=== PATIENT | female | born 1965 | race Caucasian/White ===

== ENCOUNTER → 2020-07-31 | Outpatient (CLI) | payer OTHER ==
[~2020-07-31] VITALS: Ht 157.5 cm; Wt 86.2 kg
[~2020-07-31] MED LIST: ALDACTONE50 MG PO; CHRONULAC20 GM/30 M PO; ELIQUIS 2.5 MG2.5 MG PO; GLUCOPHAGE 500500 MG PO; LASIX40 MG PO; MIDODRINE HCL10 MG PO; NORVASC10 MG PO; ONDANSETRON HCL8 MG PO; PROTONIX40 MG PO; SODIUM BICARBO650 M1 PO; SYNTHROID112 MCG PO
[2020-07-31 10:45] LABS: RED BLOOD COUNT 3.37 M/UL (4.00-5.10); WHITE BLOOD COUNT 12.4 K/UL (4.5-11.0)
== END ==
LOC: OPSV 10:00
PROVIDERS: Internal Medicine Gastroenterology
PROC: 0W9G3ZX Drainage of Peritoneal Cavity, Percutaneous Approach, Diagnostic (ICD-10-PCS; principal; 2020-07-31)
DX: K74.60 Unspecified cirrhosis of liver (principal); R18.8 Other ascites; K75.81 Nonalcoholic steatohepatitis (NASH); Z88.2 Allergy status to sulfonamides
CPT/HCPCS: 36415; 80053; 85027; 96365; C1729; P9047

== ENCOUNTER 2020-08-22 17:33 | Emergency (ER) | payer OTHER ==
[2020-08-22 20:19] LABS: RED BLOOD COUNT 3.44 M/UL (4.00-5.10); WHITE BLOOD COUNT 11.1 K/UL (4.5-11.0)
[2020-08-22 23:40] LABS: BODY FLUID SOURCE ASCITES; MONONUCLEAR CELLS 63.9 (75-100); POLYMORPHONUCLEAR % 36.1 (0-25); RBC (AUTOMATED) 200 (0-100000); WBC (AUTOMATED) 30 (0-500)
[2020-08-22 23:50] LABS: TOTAL PROTEIN, BODY FLUID 1.8 gm/dL
== END 2020-08-22 23:43 | disposition home or self-care (01) ==
LOC: ER1 17:33
PROVIDERS: Family Medicine
DX: R18.8 Other ascites (principal); I10 Essential (primary) hypertension; E11.9 Type 2 diabetes mellitus without complications
CPT/HCPCS: 80053; 81001; 82150; 82945; 83615; 83986; 84157; 85025; 85610; 87070; 87205; 89051; 96374; 99284; P9047

== ENCOUNTER 2020-09-07 18:03 | Inpatient (IN) | payer OTHER ==
[~2020-09-07] VITALS: Ht 157.5 cm; Wt 86.0 kg
[2020-09-07 18:49] LABS: HEMOGLOBIN 10.2 gm/dl (12.3-15.3); RED BLOOD COUNT 3.28 M/UL (4.00-5.10); WHITE BLOOD COUNT 12.6 K/UL (4.5-11.0)
[2020-09-07 19:15] LABS: BUN/CREATININE RATIO 16 (0-10)
[2020-09-08 02:23] LABS: HEMOGLOBIN 10.1 gm/dl (12.3-15.3); RED BLOOD COUNT 3.2 M/UL (4.00-5.10)
[2020-09-08 13:10] LABS: BODY FLUID SOURCE ASCITES; MONONUCLEAR CELLS 88 (75-100); RBC (AUTOMATED) 100 (0-100000); WBC (AUTOMATED) 25 (0-500)
[2020-09-08 13:11] LABS: POLYMORPHONUCLEAR % 12 (0-25)
[2020-09-08] MEDS ORDERED: SYNTHROID112 MCG PO (13:29)
[2020-09-08] MEDS ORDERED: GLUCOPHAGE 500500 MG PO (13:29)
[2020-09-08] MEDS ORDERED: NORVASC10 MG PO (13:29)
[2020-09-08] MEDS ORDERED: LASIX40 MG PO (13:30)
[2020-09-08] MEDS ORDERED: ONDANSETRON HCL8 MG PO (13:31)
--- NOTE | 2020-09-08 19:19 | NUR ---
PATIENT HAD PARASENTISIS WITH DR. NOONAN THIS AM. 6 L OF FLUID WERE DRAINED AWAY WITH SAMPLE SENT TO LAB. PATIENT WAS TURNED ONTO LATERAL LEFT SIDE AFTER PROCEDURE AND BAND AID PLACED OVER SURGICAL PUNCTURE. ASCITIES FLUID WAS STILL WEEPING SO PER DR. NOONAN'S INSTRUCTION A COLOSTOMY REPLACED THE BAND AID DRESSING. OF THIS EVENING ONLY A SCANT AMOUNT OF FLUID HAS DRAINED INTO THE COLOSTOMY BAG.
[2020-09-09 07:27] LABS: HEMOGLOBIN 9.1 gm/dl (12.3-15.3); RED BLOOD COUNT 3.03 M/UL (4.00-5.10)
[2020-09-09 07:31] LABS: WHITE BLOOD COUNT 8.1 K/UL (4.5-11.0)
[2020-09-10 03:34] LABS: HEMOGLOBIN 8.2 gm/dl (12.3-15.3)
[2020-09-10 03:39] LABS: RED BLOOD COUNT 2.65 M/UL (4.00-5.10)
[2020-09-11 03:15] LABS: HEMOGLOBIN 8.6 gm/dl (12.3-15.3); RED BLOOD COUNT 2.8 M/UL (4.00-5.10); WHITE BLOOD COUNT 7.8 K/UL (4.5-11.0)
[2020-09-12 03:44] LABS: RED BLOOD COUNT 2.55 M/UL (4.00-5.10)
== END 2020-09-12 14:50 | disposition home or self-care (01) | DRG 433 ==
LOC: ER1 18:03 → M/S 20:19 → CDU 20:19 → M/S 09-08 05:06
PROVIDERS: Internal Medicine; Internal Medicine Nephrology; Physician Assistant; ADMIT Internal Medicine
PROC: 0W9G3ZZ Drainage of Peritoneal Cavity, Percutaneous Approach (ICD-10-PCS; principal; 2020-09-08)
PROC: BW40ZZZ Ultrasonography of Abdomen (ICD-10-PCS; 2020-09-08)
DX: K74.69 Other cirrhosis of liver (principal); R18.8 Other ascites; N17.9 Acute kidney failure, unspecified; E87.1 Hypo-osmolality and hyponatremia; E87.3 Alkalosis; E87.2 Acidosis; C18.9 Malignant neoplasm of colon, unspecified; C78.7 Secondary malignant neoplasm of liver and intrahepatic bile duct; K52.1 Toxic gastroenteritis and colitis; Z20.822 Contact with and (suspected) exposure to COVID-19; N18.30 Chronic kidney disease, stage 3 unspecified; I12.9 Hypertensive chronic kidney disease with stage 1 through stage 4 chronic kidney disease, or unspecified chronic kidney disease; E11.22 Type 2 diabetes mellitus with diabetic chronic kidney disease; K75.81 Nonalcoholic steatohepatitis (NASH); T47.3X5A Adverse effect of saline and osmotic laxatives, initial encounter; E87.5 Hyperkalemia; Z88.2 Allergy status to sulfonamides; Z90.49 Acquired absence of other specified parts of digestive tract; Z80.3 Family history of malignant neoplasm of breast; Z79.4 Long term (current) use of insulin
CPT/HCPCS: 36415; 71045; 80048; 80053; 82550; 82553; 82962; 83874; 83880; 84439; 84443; 84484; 85025; 85379; 85610; 85730; 87070; 87205; 89051; 93005; 94640; 94664; 96374; 96375; 99285; J1644; P9047; U0002

== ENCOUNTER → 2020-10-08 | Outpatient (CLI) | payer OTHER, MEDICARE ==
[~2020-10-08] VITALS: Ht 157.5 cm; Wt 86.2 kg
== END ==
LOC: OPSV 09:29
PROVIDERS: Internal Medicine Gastroenterology
DX: K74.60 Unspecified cirrhosis of liver (principal); K75.81 Nonalcoholic steatohepatitis (NASH); R18.8 Other ascites
CPT/HCPCS: 80048; 96365; C1729; P9047

== ENCOUNTER 2020-10-14 15:33 | Inpatient (IN) | payer OTHER, MEDICARE ==
[~2020-10-14] VITALS: Ht 157.5 cm; Wt 83.5 kg
[~2020-10-14 15:33] MED LIST changes: -ALDACTONE50 MG PO; -CHRONULAC20 GM/30 M PO; -ELIQUIS 2.5 MG2.5 MG PO; -MIDODRINE HCL10 MG PO; -PROTONIX40 MG PO; -SODIUM BICARBO650 M1 PO
[2020-10-14 16:58] LABS: HEMOGLOBIN 11.1 gm/dl (12.3-15.3); RED BLOOD COUNT 3.45 M/UL (4.00-5.10); WHITE BLOOD COUNT 13.1 K/UL (4.5-11.0)
[2020-10-15] MEDS ORDERED: ALDACTONE50 MG PO (13:30)
[2020-10-16 03:57] LABS: RED BLOOD COUNT 2.83 M/UL (4.00-5.10)
--- NOTE | 2020-10-16 04:43 | NUR ---
AT 0406 on 10/16/2020, Dr. Ibarra was notified of a change in the patient's status. The patient reported eariler in the night that her body temperature "stayed low" and was normally "in the 96s". At the last round of vitals the tech informed me that the patient's temp was 95.6F tympanic. A rectal temperature was then obtained by RN and was found to be 94.7F. Patient showed no other change or distress. During this time, respiratory reported to the RN a slightly abnormal ABG and those findings were reported to the MD. No new orders were noted at this time, MD stated that the RN could place a Marly Hugger warmer on the patient or use warm blankets.
[2020-10-17 04:25] LABS: HEMOGLOBIN 8.4 gm/dl (12.3-15.3); RED BLOOD COUNT 2.68 M/UL (4.00-5.10); WHITE BLOOD COUNT 10.8 K/UL (4.5-11.0)
[2020-10-18 05:22] LABS: HEMOGLOBIN 8.4 gm/dl (12.3-15.3); RED BLOOD COUNT 2.69 M/UL (4.00-5.10); WHITE BLOOD COUNT 10.1 K/UL (4.5-11.0)
[2020-10-20 04:25] LABS: HEMOGLOBIN 8.5 gm/dl (12.3-15.3); RED BLOOD COUNT 2.7 M/UL (4.00-5.10); WHITE BLOOD COUNT 8.2 K/UL (4.5-11.0)
--- NOTE | 2020-10-21 01:47 | NUR ---
APPROX. 0147: NOTIFIED THAT THE HIGHEST ORAL TEMPERATURE THAT I COULD GET ON THE PATIENT WAS 93.1 DEGREES FARENHEIT. THE HIGHEST RECTAL TEMPERTATURE THAT I COULD GET ON THE PATIENT WAS 95.2 DEGREES FARENHEIT. STATED TO PUT THE PT ON A NICHOLAS HUGGER NOW AND RECHECK HER TEMP IN 1 HR. GET A STAT CBC, CMP, TSH, T4 LEVEL ON HER. ALSO UPDATED ON PATIENT'S CURRENT BP AND HEART RATE. APPROX. 0337: NOTIFIED THAT THE PT HAD BEEN ON THE NICHOLAS HUGGER FOR A LITTLE OVER AN HOUR AND THE HIGHEST TEMPERATURE THAT I COULD GET ON THE PATIENT WAS 95.5 DEGREES RECTALLY. STATED TO CONTINUE THE NICHOLAS HUGGER. PT IS NOT DISPLAYING ANY SIGNS/SYMPTOMS OF DISTRESS. OTHER VITAL SIGNS ARE WITHIN NORMAL LIMITS. BP: 107/60, HR: 81, RR: 18, O2: 100% RA.
[2020-10-21 02:23] LABS: HEMOGLOBIN 8.9 gm/dl (12.3-15.3); RED BLOOD COUNT 2.85 M/UL (4.00-5.10); WHITE BLOOD COUNT 7.7 K/UL (4.5-11.0)
--- NOTE | 2020-10-21 05:18 | NUR ---
RECHECKED PT'S TEMPERATURE. PT'S TEMPERATURE WAS 97.7 DEGREES FARENHEIT. NICHOLAS HUGGER WAS REMOVED FROM PATIENT.
[2020-10-21] MEDS ORDERED: SODIUM BICARBO650 M1 PO (12:39)
[2020-10-21] MEDS ORDERED: CHRONULAC20 GM/30 M PO (12:39)
[2020-10-21] MEDS ORDERED: PROTONIX40 MG PO (12:39)
[2020-10-21] MEDS ORDERED: MIDODRINE HCL10 MG PO (12:39)
[2020-10-21] MEDS ORDERED: ELIQUIS 2.5 MG2.5 MG PO (12:55)
== END 2020-10-21 16:23 | DRG 441 ==
LOC: ER1 15:33 → CDU 22:30 → MED SURG 4 22:30 → PROG CARE 10-17 15:03 → MED SURG 4 10-19 01:16
PROVIDERS: Internal Medicine; Internal Medicine Nephrology; Physician Assistant Medical; ADMIT Internal Medicine
PROC: B24BZZZ Ultrasonography of Heart with Aorta (ICD-10-PCS; 2020-10-17)
PROC: 0W9G3ZZ Drainage of Peritoneal Cavity, Percutaneous Approach (ICD-10-PCS; principal; 2020-10-21)
DX: K76.7 Hepatorenal syndrome (principal); K72.00 Acute and subacute hepatic failure without coma; C18.9 Malignant neoplasm of colon, unspecified; C78.7 Secondary malignant neoplasm of liver and intrahepatic bile duct; E87.1 Hypo-osmolality and hyponatremia; E87.2 Acidosis; R18.8 Other ascites; N17.9 Acute kidney failure, unspecified; N18.4 Chronic kidney disease, stage 4 (severe); K74.60 Unspecified cirrhosis of liver; Z20.822 Contact with and (suspected) exposure to COVID-19; I12.9 Hypertensive chronic kidney disease with stage 1 through stage 4 chronic kidney disease, or unspecified chronic kidney disease; K75.81 Nonalcoholic steatohepatitis (NASH); E11.22 Type 2 diabetes mellitus with diabetic chronic kidney disease; R53.81 Other malaise; K72.10 Chronic hepatic failure without coma; D63.1 Anemia in chronic kidney disease; Z79.84 Long term (current) use of oral hypoglycemic drugs; Z88.2 Allergy status to sulfonamides; Z90.49 Acquired absence of other specified parts of digestive tract; Z98.890 Other specified postprocedural states; Z80.3 Family history of malignant neoplasm of breast
CPT/HCPCS: ECHO; 0240U; 36415; 80048; 80053; 81001; 82436; 82550; 82553; 82728; 82803; 82962; 83540; 83550; 83874; 83880; 84133; 84300; 84439; 84443; 84484; 85025; 85027; 85610; 85730; 93005; 93306; 99284; C9113; J1644; J2354; J2405; P9047